=== PATIENT | female | born 1990 | race Caucasian/White ===

== ENCOUNTER 2024-03-24 12:45 | Emergency (ER) | payer SELFPAY ==
--- NOTE | 2024-03-24 13:55 | ER ---
Nurse's Notes [facility] Name: Nicole Stone Age: 33 yrs Sex: Female : 1990 Arrival Date: 03/24/2024 Time: 12:45 Bed 22 Private MD: Diagnosis: Syncope Near Presentation: 03/24 13:15 Chief complaint: EMS states: EMS was on scene due to patient's son having a seizure. Pt cm10 had syncopal episode after witnessing son having seizure. Pt was initially hypotensive 90s systolic and received 1L NS by EMS\E\. 13:15 Coronavirus screen: Client denies travel out of the [place] in the last 14 days. Ebola cm10 Screen: Patient denies travel to an Ebola-affected area in the 21 days before illness onset. No symptoms or risks identified at this time. Initial Sepsis Screen: Does the patient meet any 2 criteria? No. Patient's initial sepsis screen is negative. Does the patient have a suspected source of infection? No. Patient's initial sepsis screen is negative. Risk Assessment: Do you want to hurt yourself or someone else? Patient reports no desire to harm self or others. Onset of symptoms was March 24, 2024. 13:15 Method Of Arrival: EMS: [facility] cm10 13:15 Acuity: DEENA 3 cm10 13:34 Care prior to arrival: Medication(s) given: Normal saline infusion, 1000 mL, IV cm10 initiated. 18 GA, in the right antecubital area. Triage Assessment: 13:15 General: Appears in no apparent distress. comfortable, Behavior is calm, cooperative. cm10 Pain: Denies pain. Neuro: No deficits noted. Level of Consciousness is awake, alert, obeys commands, Oriented to person, place, time, situation, Appropriate for age. Neuro: Reports a syncopal episode. Respiratory: No deficits noted. Airway is patent Respiratory effort is even, unlabored, Respiratory pattern is regular, symmetrical. Derm: No deficits noted. Skin is healthy with good turgor. Musculoskeletal: No deficits noted. No signs and/or symptoms reported regarding the musculoskeletal system. Range of motion: intact in all extremities. Historical: - Allergies: 13:34 No Known Allergies; cm10 - PMHx: 13:34 None; cm10 - Immunization history:: Adult Immunizations up to date. - Infectious Disease History:: Denies. - Social history:: Smoking status: Patient denies any tobacco usage or history of. Screenin:36 [facility] ED Fall Risk Assessment (Adult) History of falling in the last 3 months, cm10 including since admission Yes- physiologic fall (2 pts) Confusion or Disorientation No (0 pts) Intoxicated or Sedated No (0 pts) Impaired Gait No (0 pts) Mobility Assist Device Used No (0 pt) Altered Elimination No (0 pt) Score/Fall Risk Level 0 - 2 = Low Risk Oriented to surroundings, Maintained a safe environment, Hourly rounding (assess needs \T\ fall precautionary measures) done. Abuse screen: Denies threats or abuse. Denies injuries from another. Nutritional screening: No deficits noted. Tuberculosis screening: No symptoms or risk factors identified. Assessment: 13:23 Reassessment: Pt states that she feels better and would like to be discharged. cm10 14:08 Neuro: No deficits noted. Level of Consciousness is awake, alert, obeys commands, cm10 Oriented to person, place, time, situation, Appropriate for age. Vital Signs: 13:15 BP 101 / 66; Pulse 89; Resp 16; Temp 96.6(IR); Pulse Ox 99% on R/A; Weight 69.4 kg; cm10 Height 5 ft. 7 in. ; Pain 0/10; 13:15 Body Mass Index 23.96 (69.40 kg, 170.18 cm) cm10 13:15 Pain Scale: Adult cm10 ED Course: 13:00 Patient arrived in ED. bc6 13:07 Yuli Alvarado MD is Attending Physician. gb1 13:10 Mary Ellen Manrique, LAY is Primary Nurse. cm10 13:34 Triage completed. cm10 13:36 Arm band placed on Patient placed in an exam room, in a wheelchair. cm10 13:36 Patient has correct armband on for positive identification. Bed in low position. Call cm10 light in reach. Provided Education on: ER process and procedures.. 13:37 Maintain EMS IV. Dressing intact. Good blood return noted. Site clean \T\ dry. Gauge \T\ cm 10 site: 18g right ac. Flushed with 10 mL NS. 14:08 No provider procedures requiring assistance completed. IV discontinued, intact, cm10 bleeding controlled, No redness/swelling at site. Pressure dressing applied. Administered Medications: No medications were administered Medication: 13:36 VIS not applicable for this client. cm10 Outcome: 13:54 Discharge ordered by . gb1 14:08 Discharged to home ambulatory, cm10 14:08 Condition: good 14:08 Discharge instructions given to patient, Instructed on discharge instructions, follow up and referral plans. Demonstrated understanding of instructions, follow-up care, 14:08 Patient left the ED. cm10 Signatures: Auugstina Scott Clarissa, RN RN cm10 Yuli Alvarado MD MD gb1
--- NOTE | 2024-03-24 13:55 | EDPHYS ---
Physician Documentation [facility] Name: Nicole Stone Age: 33 yrs Sex: Female : 1990 Arrival Date: 03/24/2024 Time: 12:45 Bed 22 Private MD: ED Physician Yuli Alvarado HPI: 03/24 13:50 This 33 yrs old Female presents to ER via EMS with complaints of Syncope. gb1 13:50 Patient's son had a dental procedure today he was drinking a chocolate smoothie and gb1 then they went to the [employer] store where he was in the back of the car surfing the smoothie and the mother heard some breath sounds that look like he was in distress. When she went to the back of the car he was stiff in his arms look like he was having a seizure. Patient's mother got him out of the car and got her son out of the car and felt dizzy and lightheaded when her mother proceeded to call 911 with what was happening. She denies any chest pain or shortness of breath and states that she feels fine at this time.. Historical: - Allergies: 13:34 No Known Allergies; cm10 - PMHx: 13:34 None; cm10 - Immunization history:: Adult Immunizations up to date. - Infectious Disease History:: Denies. - Social history:: Smoking status: Patient denies any tobacco usage or history of. Exam: 13:50 Constitutional: This is a well developed, well nourished patient who is awake, alert, gb1 and in no acute distress. Head/Face: Normocephalic, atraumatic. Eyes: Pupils equal round and reactive to light, extra-ocular motions intact. Lids and lashes normal. Conjunctiva and sclera are non-icteric and not injected. Cornea within normal limits. Periorbital areas with no swelling, redness, or edema. ENT: Nares patent. No nasal discharge, no septal abnormalities noted. Tympanic membranes are normal and external auditory canals are clear. Oropharynx with no redness, swelling, or masses, exudates, or evidence of obstruction, uvula midline. Mucous membranes moist. Neck: Trachea midline, no thyromegaly or masses palpated, and no cervical lymphadenopathy. Supple, full range of motion without nuchal rigidity, or vertebral point tenderness. No Meningismus. Chest/axilla: Normal chest wall appearance and motion. Nontender with no deformity. No lesions are appreciated. Cardiovascular: Regular rate and rhythm with a normal S1 and S2. No gallops, murmurs, or rubs. Normal PMI, no JVD. No pulse deficits. Respiratory: Lungs have equal breath sounds bilaterally, clear to auscultation and percussion. No rales, rhonchi or wheezes noted. No increased work of breathing, no retractions or nasal flaring. Abdomen/GI: Soft, non-tender, with normal bowel sounds. No distension or tympany. No guarding or rebound. No evidence of tenderness throughout. Skin: Warm, dry with normal turgor. Normal color with no rashes, no lesions, and no evidence of cellulitis. MS/ Extremity: Pulses equal, no cyanosis. Neurovascular intact. Full, normal range of motion. Neuro: Awake and alert, GCS 15, oriented to person, place, time, and situation. Cranial nerves II-XII grossly intact. Motor strength 5/5 in all extremities. Sensory grossly intact. Cerebellar exam normal. Normal gait. Psych: Awake, alert, with orientation to person, place and time. Behavior, mood, and affect are within normal limits. Vital Signs: 13:15 BP 101 / 66; Pulse 89; Resp 16; Temp 96.6(IR); Pulse Ox 99% on R/A; Weight 69.4 kg; cm10 Height 5 ft. 7 in. ; Pain 0/10; 13:15 Body Mass Index 23.96 (69.40 kg, 170.18 cm) cm10 13:15 Pain Scale: Adult cm10 MDM: 13:08 Medical Screening Exam initiated gb1 13:50 Data reviewed: vital signs, nurses notes. gb1 13:50 ED course: 33-year-old patient very well-appearing at this time I am concerned for a gb1 near syncopal episode secondary to emotional distress. No actual syncopal event occurred, no chest pain or shortness of breath on report. Patient will be discharged home today without incident.. Administered Medications: No medications were administered Disposition Summary: 03/24/24 13:54 Discharge Ordered Notes: Location: Home [facility] Condition: Stable gb1 Diagnosis - Syncope Near gb1 Followup: gb1 - With: Private Physician - When: - Reason: If symptoms return Discharge Instructions: - Discharge Summary Sheet gb1 - Near-Syncope, [id number] gb1 Forms: - Medication Reconciliation Form gb1 - Antibiotic Education gb1 - Prescription Opioid Use gb1 - Patient Portal Instructions gb1 - Leadership Thank You Letter gb1 Signatures: Dispatcher [employer] Mary Ellen Gallego RN RN cm10 Yuli Alvarado MD MD gb1 Corrections: (The following items were deleted from the chart) 13:09 13:09 Chest Single View+RAD.RAD.BRZ ordered. EDMS EDMS 14:00 13:09 Cardiac monitoring ordered. gb1 cm10 14:00 13:09 EKG - Nurse/Tech ordered. gb1 cm10 14:00 13:09 IV Saline Lock ordered. gb1 cm10 14:00 13:09 Labs collected and sent ordered. gb1 cm10 14:00 13:09 NPO ordered. gb1 cm10 14:00 13:09 Oxygen Per Protocol ordered. gb1 cm10 14:00 13:09 O2 Sat Monitoring ordered. gb1 cm10 14:07 13:09 BASIC METABOLIC PANEL+C.LAB.BRZ ordered. EDMS EDMS 14:07 13:09 HEPATIC FUNCTION+C.LAB.BRZ ordered. EDMS EDMS 14:07 13:09 Troponin High Sensitivity+C.LAB.BRZ ordered. EDMS EDMS 14:08 13:09 CBC+H.LAB.BRZ ordered. EDMS EDMS 14:08 13:09 MAGNESIUM+C.LAB.BRZ ordered. EDMS EDMS 14:08 13:09 PROTIME (+INR)+COAG.LAB.BRZ ordered. EDMS EDMS 14:08 13:09 PTT, ACTIVATED+COAG.LAB.BRZ ordered. EDMS EDMS 14:08 13:09 Test, Urine+UC.LAB.BRZ ordered. EDMS EDMS
[2024-03-24 14:13] VITALS: BP 101/66; TEMP 96.6; O2SAT 99
== END 2024-03-24 14:08 | disposition home or self-care (01) ==
LOC: ER 12:45
DX: R55 Syncope and collapse (principal)
CPT/HCPCS: 93005; 99283